=== PATIENT | male | born 1980 | race Hispanic/Latino ===

== ENCOUNTER 2017-04-14 16:13 | Emergency (ER) | payer SELFPAY ==
[2017-04-14] MEDS ORDERED: Ketorolac Tromethamine 30 MG/ML VIAL ONE (18:02)
[2017-04-14] MEDS ORDERED: Acetaminophen/Codeine 30-300mg Tablet ONE (18:03)
--- NOTE | 2017-04-14 18:03 | RAD ---
3 VIEWS ELBOW: Date: 04/14/17 HISTORY: Deformity. Patient was playing basketball and landed. COMPARISON: None. FINDINGS: No joint effusion. No fracture. No cortical irregularity. No periosteal reaction. IMPRESSION: No fracture. If there is pain or point tenderness, immobilization and follow-up imaging in 7-10 days recommended. POS: [facility]
== END 2017-04-14 18:49 | disposition home or self-care (01) ==
LOC: ERS 16:13
DX: M25.522 Pain in left elbow (principal)
CPT/HCPCS: 29125; 96372; J1885